=== PATIENT | male | born 1955 | race Caucasian/White ===

== ENCOUNTER 2016-09-07 11:27 | Day surgery (SDC) | payer OTHER ==
[2016-09-07] VITALS (10 sets, daily range): BP systolic 112–149; BP diastolic 70–87; PULSE 65–79; TEMP 97.7–99
[~2016-09-07] VITALS: Ht 185.4 cm; Wt 96.6 kg
[~2016-09-07 11:27] MED LIST: ASPIRIN 32325 MG/TAB PO; FISH OIL CONC1000 MG PO; LIPITOR40 MG PO; LISINOPRIL10 MG PO; MVI; NEXIUM40 MG PO; NITROQUICK0.4 MG SL; TOPROL XL25 MG PO
[2016-09-07] MEDS ORDERED: NATURE'S BLEN2000 IU PO (13:16)
[2016-09-07] MEDS ORDERED: IMDUR 30MG30 MG/TAB PO (13:16)
[2016-09-07] MEDS ORDERED: TOPROL XL 25MG25 MG PO (13:17)
[2016-09-07] MEDS ORDERED: NORVASC2.5 MG PO (13:17)
[2016-09-07] MEDS ORDERED: NEXIUM 40MG40 MG PO (13:18)
[2016-09-07] MEDS ORDERED: OMEGA-3 FISH1000 MG PO (13:19)
[2016-09-07] MEDS ORDERED: ASPI325T6 PO (13:19)
[2016-09-07] MEDS ORDERED: FLOMAX 0.40.4 MG/CAP PO (13:19)
[2016-09-08 01:26] VITALS: BP 135/80; PULSE 66; TEMP 98
[2016-09-08 06:14] VITALS: BP 129/78; PULSE 69; TEMP 98.3
[2016-09-08 07:34] LABS: HEMATOCRIT 46.6 % (42.0-52.0); HEMOGLOBIN 15.9 g/dl (13.5-18.0); MEAN CELL VOLUME 91 fl (80.0-100.0); MEAN CORPUSCULAR HEMOGLOBIN 31 pg (27.0-31.0); MEAN CORPUSCULAR HGB CONC 34 g/dl (33.0-37.0); MEAN PLATELET VOLUME 9.5 fl (7.4-10.4); PLATELET COUNT 230 K/mm3 (130-400); RED BLOOD COUNT 5.14 M/mm3 (4.20-5.60); REDCELL DISTRIBUTION WIDTH-CV 13.4 % (11.5-14.5)
[2016-09-08 07:40] LABS: WHITE BLOOD COUNT 20.9 K/mm3 (4.8-10.8)
[2016-09-08 09:51] VITALS: BP 136/79; PULSE 80; TEMP 98.1
[2016-09-08 13:29] VITALS: BP 120/73; PULSE 72
== END 2016-09-08 17:00 | disposition home or self-care (01) ==
LOC: SDCO 11:27 → SURG 15:35 → SDCO 17:30
PROVIDERS: Urology
DX: C61 Malignant neoplasm of prostate (principal); N40.1 Benign prostatic hyperplasia with lower urinary tract symptoms; R35.1 Nocturia; R31.0 Gross hematuria; I25.119 Atherosclerotic heart disease of native coronary artery with unspecified angina pectoris; K21.9 Gastro-esophageal reflux disease without esophagitis; H40.10X0 Unspecified open-angle glaucoma, stage unspecified; F17.210 Nicotine dependence, cigarettes, uncomplicated; I10 Essential (primary) hypertension; E78.5 Hyperlipidemia, unspecified; R73.03 Prediabetes; E07.9 Disorder of thyroid, unspecified; Z86.73 Personal history of transient ischemic attack (TIA), and cerebral infarction without residual deficits; Z80.3 Family history of malignant neoplasm of breast; Z85.07 Personal history of malignant neoplasm of pancreas; Z85.46 Personal history of malignant neoplasm of prostate
CPT/HCPCS: OP; J0690; J1100; J2250; J2704; J3010; J7120

== ENCOUNTER → 2016-09-24 | Outpatient (REF) ==
[~2016-09-24] MED LIST changes: +ASPI325T6 PO; +FLOMAX 0.40.4 MG/CAP PO; +IMDUR 30MG30 MG/TAB PO; +NATURE'S BLEN2000 IU PO; +NEXIUM 40MG40 MG PO; +NORVASC2.5 MG PO; +OMEGA-3 FISH1000 MG PO; +TOPROL XL 25MG25 MG PO
== END ==
LOC: WSOH 10:59
DX: Z02.89 Encounter for other administrative examinations (principal)

== ENCOUNTER 2017-05-12 05:46 | Emergency (ER) | payer OTHER ==
[~2017-05-12] VITALS: Ht 185.4 cm; Wt 100.0 kg
[2017-05-12 05:53] VITALS: TEMP 96.9
[2017-05-12 06:21] LABS: BASO # 0.1 (0.0-0.2); BASO % 0.8 % (0.0-2.0); EOS # 0.2 (0.0-0.7); GRAN # 5.8 (1.4-6.5); GRAN % 76.8 % (42.2-75.2); HEMATOCRIT 41.5 % (42.0-52.0); HEMOGLOBIN 14.1 g/dl (13.5-18.0); LYMPH # 0.8 (1.2-3.4); LYMPH % 10.9 % (20.0-51.0); MEAN CELL VOLUME 92 fl (80.0-100.0); MEAN CORPUSCULAR HEMOGLOBIN 31 pg (27.0-31.0); MEAN CORPUSCULAR HGB CONC 34 g/dl (33.0-37.0); MEAN PLATELET VOLUME 9.2 fl (7.4-10.4); MONO # 0.7 (0.1-0.6); MONO % 8.8 % (1.7-9.3); PLATELET COUNT 257 K/mm3 (130-400); RED BLOOD COUNT 4.51 M/mm3 (4.20-5.60); REDCELL DISTRIBUTION WIDTH-CV 12.4 % (11.5-14.5)
[2017-05-12 06:32] LABS: ALBUMIN 4.1 gm/dL (3.5-5.0); BILIRUBIN,TOTAL 0.3 mg/dL (0.0-1.0); CALCIUM 9.9 mg/dL (8.4-10.2); CREATININE, serum 1.32 mg/dL (0.66-1.25)
[2017-05-12 06:42] LABS: POTASSIUM 4.1 mmol/L (3.4-5.0)
[2017-05-12 07:23] LABS: COLLECTION METHOD CLEAN CATCH
[2017-05-12 07:32] LABS: MUCOUS Present /lpf; PH 5 (5-8); SQUAMOUS EPITHELIAL 0-2 /hpf; URINE APPEARANCE Clear; URINE BACTERIA None Seen /hpf; URINE BILIRUBIN Negative (NEGATIVE); URINE BLOOD Negative (NEGATIVE); URINE COLOR Yellow; URINE GLUCOSE Negative (NEGATIVE); URINE KETONE Negative (NEGATIVE); URINE LEUKOCYTE ESTERASE Negative (NEGATIVE); URINE NITRATE Negative (NEGATIVE); URINE PROTEIN(semi-quant) Negative (NEGATIVE); URINE RBC None Seen /hpf
[2017-05-12] MEDS ORDERED: CASODEX 50MG TA50 MG PO (08:03)
[2017-05-12 08:08] VITALS: BP 126/79; PULSE 65
== END 2017-05-12 08:06 | disposition home or self-care (01) ==
LOC: COL.ER 05:46
PROVIDERS: Emergency Medicine
DX: S06.0X0A Concussion without loss of consciousness, initial encounter (principal); S00.93XA Contusion of unspecified part of head, initial encounter; I10 Essential (primary) hypertension; Z86.73 Personal history of transient ischemic attack (TIA), and cerebral infarction without residual deficits; Z79.82 Long term (current) use of aspirin; V89.2XXA Person injured in unspecified motor-vehicle accident, traffic, initial encounter
CPT/HCPCS: J2765; J3010; J7030

== ENCOUNTER 2018-04-11 11:00 | Day surgery (SDC) | payer OTHER ==
[~2018-04-11] VITALS: Ht 154.9 cm; Wt 96.6 kg
[~2018-04-11 11:00] MED LIST changes: +CASODEX 50MG TA50 MG PO
[2018-04-11 11:37] VITALS: BP 119/79; PULSE 72; TEMP 98.1
[2018-04-11] MEDS ORDERED: PROTONIX 40MG T40 MG PO (11:44)
[2018-04-11] MEDS ORDERED: LIPITOR20 MG PO (11:46)
[2018-04-11] MEDS ORDERED: TYLENOL 325MG325 MG PO (11:46)
[2018-04-11] MEDS ORDERED: ASPIRIN E.C. 8181 MG PO (11:47)
[2018-04-11 14:10] VITALS: BP 133/76; PULSE 59; TEMP 97.3
[2018-04-11 14:25] VITALS: BP 135/77; PULSE 61
[2018-04-11] MEDS ORDERED: PYRIDIUM 100MG100 MG PO (14:25)
[2018-04-11 14:30] VITALS: BP 133/76; PULSE 65
[2018-04-11 17:48] VITALS: BP 133/76; PULSE 62
== END 2018-04-11 15:06 | disposition home or self-care (01) ==
LOC: SDCO 11:00
DX: C68.0 Malignant neoplasm of urethra (principal); C61 Malignant neoplasm of prostate; R31.0 Gross hematuria; Z85.46 Personal history of malignant neoplasm of prostate; R35.0 Frequency of micturition; R39.15 Urgency of urination; R39.12 Poor urinary stream; I10 Essential (primary) hypertension; R73.03 Prediabetes; K21.9 Gastro-esophageal reflux disease without esophagitis; F32.9 Major depressive disorder, single episode, unspecified; E78.5 Hyperlipidemia, unspecified; Z86.73 Personal history of transient ischemic attack (TIA), and cerebral infarction without residual deficits; Z79.82 Long term (current) use of aspirin; Z79.899 Other long term (current) drug therapy; F17.210 Nicotine dependence, cigarettes, uncomplicated; Z80.3 Family history of malignant neoplasm of breast; Z80.0 Family history of malignant neoplasm of digestive organs; Z80.42 Family history of malignant neoplasm of prostate; J44.9 Chronic obstructive pulmonary disease, unspecified; E03.9 Hypothyroidism, unspecified; I25.10 Atherosclerotic heart disease of native coronary artery without angina pectoris; Z85.828 Personal history of other malignant neoplasm of skin; H40.9 Unspecified glaucoma
CPT/HCPCS: J0690; J1100; J1885; J2405; J2704; J3010; J7120

== ENCOUNTER → 2019-10-24 | Outpatient (CLI) | payer OTHER ==
[~2019-10-24] MED LIST changes: +ASPIRIN E.C. 8181 MG PO; +LIPITOR20 MG PO; +PROTONIX 40MG T40 MG PO; +PYRIDIUM 100MG100 MG PO; +TYLENOL 325MG325 MG PO
== END ==
LOC: COL.RAD 09:22
DX: C61 Malignant neoplasm of prostate (principal); C79.51 Secondary malignant neoplasm of bone
CPT/HCPCS: A9503; Q9967

== ENCOUNTER → 2019-11-06 | Outpatient (CLI) | payer OTHER | LOC: COL.VAS 09:45 | DX: Z01.810 Encounter for preprocedural cardiovascular examination (principal); C61 Malignant neoplasm of prostate; C79.51 Secondary malignant neoplasm of bone; I34.0 Nonrheumatic mitral (valve) insufficiency ==